=== PATIENT | female | born 1950 | race Caucasian/White ===

== ENCOUNTER 2021-02-04 17:06 | Inpatient (IN) | payer OTHER, MEDICARE, SELFPAY ==
[~2021-02-04] VITALS: Ht 170.2 cm; Wt 103.9 kg
[2021-02-04 17:08] VITALS: BP_SYST 157
--- NOTE | 2021-02-04 17:30 | NUR ---
ER DR. NELSON EXAMINING PT IN THE LOBBY
--- NOTE | 2021-02-04 18:50 | NUR ---
Placed in room 2 . Placed on bus driver/monitor, blood pressure machine and pulse oximeter. To gown for exam. Side rails up.
--- NOTE | 2021-02-04 18:57 | NUR ---
PT CAME IN C/O R LOWER LEG SWELLING 1 MONTH. PT REPORTS REPORTS HAVING DISCOMFORT WHEN AMBULATING STARTING TODAY. PT IS AAOX4, V/S STABLE
--- NOTE | 2021-02-04 19:09 | NUR ---
REPORT GIVEN TO LEONEL PEREZ FOR CONTINUING CARE
--- NOTE | 2021-02-04 19:10 | NUR ---
Report received from LEONEL Porter. will assume all care of patient. Patient AAOx4. VSS. Consent for CTA obtained. at bedside. PO fluids given. PT tolerating well.
[2021-02-04 19:18] LABS: BASOPHILS # (AUTO) 0.1 K/uL (0.0-0.2); BASOPHILS % (AUTO) 0.7 % (0.0-2.0); EOSINOPHILS # (AUTO) 0.2 K/uL (0.0-0.4); EOSINOPHILS % (AUTO) 1.7 % (0.0-4.0); HEMATOCRIT 42.5 % (36-48); HEMOGLOBIN 13.2 g/dL (12.0-16.0); LYMPHOCYTES # (AUTO) 1.7 K/uL (1.0-5.5); LYMPHOCYTES % (AUTO) 16.9 % (20.5-51.5); MEAN CORPUSCULAR HEMOGLOBIN 28 pg (27-31); MEAN CORPUSCULAR HGB CONC 31 % (32-36); MEAN CORPUSCULAR VOLUME 90 fL (79.0-98.0); MONOCYTES # (AUTO) 0.4 K/uL (0.0-1.0); MONOCYTES % (AUTO) 4.4 % (1.7-9.3); NEUTROPHILS # (AUTO) 7.8 K/uL (1.8-7.7); NEUTROPHILS % (AUTO) 76.3 % (40.0-70.0); PLATELET COUNT (AUTO) 221 K/uL (130-430); RED BLOOD CELL COUNT(AUTO) 4.72 MIL/uL (4.2-6.2); RED CELL DISTRIBUTION WIDTH 16.9 % (9.0-15.0); WHITE BLOOD COUNT (AUTO) 10.2 K/uL (4.8-10.8)
--- NOTE | 2021-02-04 19:45 | NUR ---
# 18 gauge angiocath placed to LAC. Use of asceptic technique. Opsite placed over site. Blood return noted. Flushed with 10 cc of normal saline. No evidence of infiltration noted. Patient tolerated well.
[2021-02-04 19:48] LABS: ANION GAP 8 (5-15); CALCIUM 9.4 mg/dL (8.4-11.0); CHLORIDE 108 mmol/L (98-107); CREATININE 1.29 mg/dL (0.55-1.30); GLUCOSE 168 mg/dL (70-99); POTASSIUM 3.2 mmol/L (3.5-5.1); SODIUM SERUM 144 mmol/L (136-145); UREA NITROGEN, BLOOD 33 mg/dL (8-21)
[2021-02-04 19:54] LABS: ALANINE AMINOTRANSFERASE 24 U/L (12-78); ALBUMIN 3.2 g/dL (3.4-4.8); ASPARTATE AMINOTRANSFERASE 25 U/L (10-37)
[2021-02-04] MEDS ORDERED: IOHEXOL 350 mgI/mL, 150 ML INFUS..BTL IV ONE (20:10)
--- NOTE | 2021-02-04 20:45 | NUR ---
PATIENT TAKEN TO CTA SCAN. VSS.
--- NOTE | 2021-02-04 21:18 | NUR ---
Patient will be admitted to care of [facility]. Admitted to TELE unit. Will go to room 103B. Belongings list completed. Complete and up to date summary report printed. SBAR report to be given at bedside with opportunity for questions.
[2021-02-04] MEDS ORDERED: ENOXAPARIN SODIUM 100 MG/ML SYRINGE SUBCUT ONE (21:30)
--- NOTE | 2021-02-04 21:38 | NUR ---
Patient's code status is FULL CODE paperwork completed and placed in chart.
[2021-02-04] MEDS ORDERED: ENOXAPARIN SODIUM 120 MG/0.8 ML SYRINGE SUBCUT SCH (22:00)
[2021-02-04] MEDS ORDERED: LISI2.5T48 PO (22:22)
[2021-02-04] MEDS ORDERED: ASPI-1155 PO (22:26)
[2021-02-04] MEDS ORDERED: PROP20TA7 PO (22:26)
[2021-02-04] MEDS ORDERED: HYDR25TA4 PO (22:26)
[2021-02-04] MEDS ORDERED: VITD2000 PO (22:26)
[2021-02-04] MEDS ORDERED: NEBI5TAB3 PO (22:26)
[2021-02-04] MEDS ORDERED: SITA1TAB6 PO (22:26)
[2021-02-04] MEDS ORDERED: CLON-433 PO (22:26)
--- NOTE | 2021-02-04 22:26 | NUR ---
Medication reconciliation completed with information provided by PATIENT. Any prior medication reconciliation on file was reviewed and corrected.
--- NOTE | 2021-02-04 23:01 | NUR ---
RECEIVED PT FROM ER PT AMBULATED FROM GURNEY TO BED. PT CURRENTLY DENIES PAIN. RESPIRATIONS EVEN AND UNLABORED ON RA. RIGHT LOWER LEG AND FOOT EDEMA. LEFT AC 18G IV SL. FLUSHES WELL. SKIN INTACT. BED IN LOW AND LOCKED POSITION. PT REQUESTING HALF A TURKEY SANDWICH. EDUCATED PT ON PLAN OF CARE FOR THE NIGHT. PT VERBALIZED UNDERSTANDING. CALL LIGHT WITHIN REACH. SAFETY PRECAUTIONS IN PLACE. WILL CONTINUE TO MONITOR.
--- NOTE | 2021-02-04 23:01 | NUR ---
Transfer to TELE via ACLS protocol. Licensed nurse present. IV present no signs or symptoms of infiltration.
[2021-02-04 23:28] VITALS: BP_SYST 138
--- NOTE | 2021-02-04 23:30 | NUR ---
DR. MORALES AT BEDSIDE SPEAKING TO PT ABOUT DIAGNOSIS AND PLAN OF CARE. PT VERBALIZES UNDERSTANDING.
[2021-02-05] VITALS: BP_SYST 138
[2021-02-05] MEDS: HYDROCHLOROTHIAZIDE 25 MG TABLET (HCTZ) PO SCH ×2 (00:47→08:13)
[2021-02-05] MEDS: lisinopriL 20 MG TABLET PO SCH ×2 (00:47→08:12)
--- NOTE | 2021-02-05 03:05 | NUR ---
ROUNDED PT AWAKE AND ORIENTED LAYING IN BED. RESPIRATIONS EVEN AND UNLABORED ON RA. NO SIGNS OF DISTRESS NOTED. PT STATES SHE IS UNABLE TO SLEEP BECAUSE SHE GETS UP TO AMBULATE TO RESTROOM OFTEN. PT STATES SHE WILL TRY AND REST. WILL CONTINUE TO MONITOR.
--- NOTE | 2021-02-05 06:24 | NUR ---
CLOSING NOTE PATIENT LAYING IN BED WITH RESPIRATIONS EVEN AND UNLABORED ON RA. NO SIGNS OF DISTRESS NOTED. LEFT AC 18G IV SL. FLUSHES WELL. PT CURRENTLY DENIES SOB OR PAIN. ALL NEEDS MET THROUGHOUT THE NIGHT. BED IN LOW AND LOCKED POSITION. CALL LIGHT WITHIN REACH. SAFETY PRECAUTIONS IN PLACE. WILL ENDORSE TO DAY RN.
[2021-02-05 06:51] LABS: BASOPHILS % (AUTO) 0.4 % (0.0-2.0); EOSINOPHILS # (AUTO) 0.2 K/uL (0.0-0.4); EOSINOPHILS % (AUTO) 2.1 % (0.0-4.0); HEMATOCRIT 40.2 % (36-48); HEMOGLOBIN 12.7 g/dL (12.0-16.0); LYMPHOCYTES # (AUTO) 2.1 K/uL (1.0-5.5); LYMPHOCYTES % (AUTO) 23.2 % (20.5-51.5); MEAN CORPUSCULAR HEMOGLOBIN 28 pg (27-31); MEAN CORPUSCULAR HGB CONC 32 % (32-36); MEAN CORPUSCULAR VOLUME 89 fL (79.0-98.0); MONOCYTES # (AUTO) 0.5 K/uL (0.0-1.0); MONOCYTES % (AUTO) 5.7 % (1.7-9.3); NEUTROPHILS # (AUTO) 6.2 K/uL (1.8-7.7); NEUTROPHILS % (AUTO) 68.6 % (40.0-70.0); PLATELET COUNT (AUTO) 199 K/uL (130-430); RED CELL DISTRIBUTION WIDTH 16.7 % (9.0-15.0); WHITE BLOOD COUNT (AUTO) 9.1 K/uL (4.8-10.8)
[2021-02-05 07:08] LABS: CALCIUM 9.2 mg/dL (8.4-11.0); CREATININE 1.05 mg/dL (0.55-1.30); GLUCOSE 110 mg/dL (70-99); UREA NITROGEN, BLOOD 25 mg/dL (8-21)
[2021-02-05 07:33] LABS: ANION GAP 14 (5-15); CHLORIDE 106 mmol/L (98-107); SODIUM SERUM 147 mmol/L (136-145)
[2021-02-05 07:47] LABS: POTASSIUM 2.5 mmol/L (3.5-5.1)
--- NOTE | 2021-02-05 07:49 | NUR ---
ATTENDING MD DR MORALES WAS PAGED DIRECTLY, RE: K OF 2.5.
[2021-02-05 08:00] VITALS: BP_SYST 140
[2021-02-05] MEDS: PROPRANOLOL HCL 10 MG TABLET (INDERAL) PO SCH (08:10)
[2021-02-05] MEDS: CHOLECALCIFEROL (VITAMIN D3) 2,000 UNIT TABLET PO SCH (08:11)
[2021-02-05] MEDS: metFORMIN HCL 500 MG TABLET PO SCH ×2 (08:11→18:22)
[2021-02-05] MEDS: ASPIRIN 81 MG TAB.CHEW PO SCH (08:13)
[2021-02-05] MEDS ORDERED: ENOXAPARIN SODIUM 100 MG/ML SYRINGE SUBCUT ONE (08:45)
[2021-02-05] MEDS ORDERED: METFORMIN HCL PO SCH (09:00)
[2021-02-05] MEDS ORDERED: *LOVENOX 1MG/KG Q12H/PHARMACY XX SCH (09:00)
[2021-02-05] MEDS: ENOXAPARIN SODIUM 100 MG/ML SYRINGE SUBCUT SCH ×2 (09:00→22:17)
[2021-02-05] MEDS ORDERED: [UNRECOGNIZED DRUG - OTHER] PO SCH (09:00)
[2021-02-05] MEDS ORDERED: SITAGLIPTIN PHOS PO SCH (09:00)
--- NOTE | 2021-02-05 09:10 | NUR ---
HIGH ALERT NOTE: Called Dr. espinoza back at [phone] identified within the medical roster to verify physician authenticity.
[2021-02-05] MEDS ORDERED: POTASSIUM CHLORIDE 40 MEQ, LIDOCAINE JECT 2% PF 100 MG 50 MG in NS 250 ML IV ONE (09:15)
[2021-02-05] MEDS ORDERED: POTASSIUM CHLORIDE 20 MEQ TAB.PRT.SR PO ONE (09:15)
--- NOTE | 2021-02-05 09:35 | NUR ---
Nutrition Update Yao Scale 18 noted. Pt admitted for acute pulmonary embolism. Diet: [facility] BMI: 36 kg/m2 RD to follow per nutrition care standards.
[2021-02-05] MEDS ORDERED: IOHEXOL 350 mgI/mL, 150 ML INFUS..BTL IV ONE (09:40)
--- NOTE | 2021-02-05 10:20 | NUR ---
alert, oriented, and compliant with care this am, per tech, 25% 2/ K+ 2.5, got replaced with 40meq po, and now 40K with Lidocaine, up now at 68cc/hr 3/ just finished running off CT of both LEs. walked with heaviness, secondary RLE very swollen
[2021-02-05] MEDS: INSULIN REGULAR, HUMAN 100 UNITS/ML, 10 ML VIAL (humuLIN R) SUBCUT PRN (11:12)
[2021-02-05 12:22] VITALS: BP_SYST 111
[2021-02-05] MEDS ORDERED: METOPROLOL TARTRATE 50 MG TABLET PO ONE (13:45)
[2021-02-05] MEDS ORDERED: FAMOTIDINE 20 MG TABLET PO ONE (14:45)
--- NOTE | 2021-02-05 14:51 | NUR ---
Dietitian Recommendations * CCHO, cardiac diet * RD provided diabetic and heart-healthy MNT COURTNEY, RD Please refer to Nutrition Assessment for details. Addendum: 02/05/21 at [address] Amended: Links added.
[2021-02-05] MEDS ORDERED: BENZONATATE 100 MG CAPSULE (TESSALON) PO ONE (15:00)
[2021-02-05 16:58] VITALS: BP_SYST 143
--- NOTE | 2021-02-05 18:30 | NUR ---
multiple complaints: 1/ dry cough, " because of Lopressor, or Prinivil I took" 2/ "stomach cramping all the time" attributed this to Glucophageat 3/ at home, " no insulin, why here? explained why needs Insulin, bs prior to lunch 187, 2units Humulin R given sq brought up to attending about complaints (1,2), Tessalon, and Pepcid given.
--- NOTE | 2021-02-05 19:15 | NUR ---
Opening note Received patient awake, resting in bed, talking with family member. No distress, nonlabored breathing and denies pain. IV is SL. Bed is locked in lowest position, side rails up 2x, call light w/in reach and bed alarm off. She reports she has been ambulating and does not want bed alarm. Updated board.
[2021-02-05 20:00] VITALS: BP_SYST 154
[2021-02-05] MEDS: BENZONATATE 100 MG CAPSULE (TESSALON) PO SCH (21:00)
[2021-02-05] MEDS: METOPROLOL TARTRATE 50 MG TABLET PO SCH (22:14)
--- NOTE | 2021-02-05 22:15 | NUR ---
Meds, accucheck due meds given. she did not want Tessalon stating she already received dose. She did take Metoprolol. Accucheck result was 134mg/dL.
[2021-02-06 00:05] VITALS: BP_SYST 161
[2021-02-06 00:30] VITALS: BP_SYST 157
--- NOTE | 2021-02-06 00:30 | NUR ---
rounds patient resting w/ eyes closed and momentarily awakened for repeat of B/P; 157/75, HR 64; she denies pain
[2021-02-06 06:51] LABS: BASOPHILS # (AUTO) 0.1 K/uL (0.0-0.2); BASOPHILS % (AUTO) 1.1 % (0.0-2.0); EOSINOPHILS # (AUTO) 0.2 K/uL (0.0-0.4); EOSINOPHILS % (AUTO) 2.8 % (0.0-4.0); HEMATOCRIT 36.9 % (36-48); HEMOGLOBIN 12.1 g/dL (12.0-16.0); LYMPHOCYTES # (AUTO) 2.1 K/uL (1.0-5.5); LYMPHOCYTES % (AUTO) 27.5 % (20.5-51.5); MEAN CORPUSCULAR HEMOGLOBIN 29 pg (27-31); MEAN CORPUSCULAR HGB CONC 33 % (32-36); MEAN CORPUSCULAR VOLUME 89 fL (79.0-98.0); MONOCYTES # (AUTO) 0.5 K/uL (0.0-1.0); MONOCYTES % (AUTO) 6.7 % (1.7-9.3); NEUTROPHILS # (AUTO) 4.8 K/uL (1.8-7.7); NEUTROPHILS % (AUTO) 61.9 % (40.0-70.0); PLATELET COUNT (AUTO) 173 K/uL (130-430); RED BLOOD CELL COUNT(AUTO) 4.15 MIL/uL (4.2-6.2); RED CELL DISTRIBUTION WIDTH 16.7 % (9.0-15.0); WHITE BLOOD COUNT (AUTO) 7.7 K/uL (4.8-10.8)
--- NOTE | 2021-02-06 06:55 | NUR ---
closing note Resting in bed, awake, no distress and denies pain, "looking forward to going home". Accucheck result is 98mg/dL. Needs met throughout shift, will endorse care to day shift nurse
[2021-02-06 07:01] LABS: ANION GAP 9 (5-15); CALCIUM 8.5 mg/dL (8.4-11.0); CHLORIDE 105 mmol/L (98-107); GLUCOSE 93 mg/dL (70-99); PHOSPHORUS 4.2 mg/dL (2.7-4.5); SODIUM SERUM 144 mmol/L (136-145); UREA NITROGEN, BLOOD 23 mg/dL (8-21)
[2021-02-06 08:30] VITALS: BP_SYST 171
--- NOTE | 2021-02-06 08:30 | NUR ---
ASSUMPTION OF CARE: RECEIVED PT A/A/OX4, DX:INEFFECTIVE PERIPHERAL TISSUE PERFUSION, R/T OBSTRUCTIVE PULMONARY ARTERY, VSS AFEBRILE, BREATH SOUNDS ARE CLEAR, BREATHING UNLABORED, SATURATING 96% ORA, NO S/S OF DISTRESS, NO C/O PAIN OR DISCOMFORT, IV SITE INTACT, PATENT, NO REDNESS OR SWELLING, ORIENTED TO UNIT, BRP, AMBULATORY WITH STEADY GAIT, PULSES ARE PALPABLE, COLOR IS GOOD, SKIN WARM, DRY TO TOUCH, NEEDS MET, CALL LIGHT PLACED WITHIN REACH, WILL CONT' TO MONITOR AND ASSESS.
[2021-02-06] MEDS: HYDROCHLOROTHIAZIDE 25 MG TABLET (HCTZ) PO SCH (09:00)
--- NOTE | 2021-02-06 10:15 | NUR ---
CORPORATE STRATEGY INTERN: MORNING MEDS GIVEN, PER ORDERED BY Geremias, TOLERATED WELL, WILL CONT' TO MONITOR AND ASSESS.
[2021-02-06] MEDS: BENZONATATE 100 MG CAPSULE (TESSALON) PO SCH ×3 (10:29→20:20)
[2021-02-06] MEDS: POTASSIUM CHLORIDE 20 MEQ TAB.PRT.SR PO SCH (10:29)
[2021-02-06] MEDS: metFORMIN HCL 500 MG TABLET PO SCH ×2 (10:30→18:00)
[2021-02-06] MEDS: FAMOTIDINE 20 MG TABLET PO SCH (10:30)
[2021-02-06] MEDS: PROPRANOLOL HCL 10 MG TABLET (INDERAL) PO SCH (10:30)
[2021-02-06] MEDS: CHOLECALCIFEROL (VITAMIN D3) 2,000 UNIT TABLET PO SCH (10:31)
[2021-02-06] MEDS: ASPIRIN 81 MG TAB.CHEW PO SCH (10:32)
[2021-02-06] MEDS: METOPROLOL TARTRATE 50 MG TABLET PO SCH ×2 (10:32→20:19)
[2021-02-06] MEDS: ENOXAPARIN SODIUM 100 MG/ML SYRINGE SUBCUT SCH ×2 (10:34→20:21)
[2021-02-06] MEDS: INSULIN REGULAR, HUMAN 100 UNITS/ML, 10 ML VIAL (humuLIN R) SUBCUT PRN (11:45)
--- NOTE | 2021-02-06 12:00 | NUR ---
GLUCOSE MONITORING: BLOOD SUGAR MWFTP=[id number], 2 UNITS REGULAR INSULIN GIVEN SQ, TOLERATED WELL, WILL CONT' WITH POC.
[2021-02-06 12:16] VITALS: BP_SYST 163
[2021-02-06 15:12] VITALS: BP_SYST 154
[2021-02-06] MEDS ORDERED: POTASSIUM CHLORIDE 20 MEQ TAB.PRT.SR PO ONE (18:30)
--- NOTE | 2021-02-06 19:35 | NUR ---
Opening note Received patient awake, resting in bed. No distress, nonlabored breathing and denies pain. Bed is locked in lowest position, side rails up 2x, call light w/in reach and bed alarm off. She reports she has been ambulating and does not want bed alarm. Updated board.
[2021-02-06 20:00] VITALS: BP_SYST 148
--- NOTE | 2021-02-06 20:20 | NUR ---
meds scheduled meds given
[2021-02-06] MEDS ORDERED: VALSARTAN 160 MG TABLET (DIOVAN) PO SCH (21:00)
--- NOTE | 2021-02-06 21:31 | NUR ---
accucheck Accucheck result was 146mg/dL.
--- NOTE | 2021-02-06 22:20 | NUR ---
room change Patient was changed to room 100A, belongs taken
[2021-02-07 00:50] VITALS: BP_SYST 144
--- NOTE | 2021-02-07 06:23 | NUR ---
accucheck Accucheck result was 110 mg/dL.
[2021-02-07 06:57] LABS: ANION GAP 10 (5-15); CHLORIDE 106 mmol/L (98-107); CREATININE 1.17 mg/dL (0.55-1.30); GLUCOSE 119 mg/dL (70-99); POTASSIUM 3.9 mmol/L (3.5-5.1); SODIUM SERUM 145 mmol/L (136-145); UREA NITROGEN, BLOOD 23 mg/dL (8-21)
[2021-02-07 07:42] VITALS: BP_SYST 160
[2021-02-07] MEDS: HYDROCHLOROTHIAZIDE 25 MG TABLET (HCTZ) PO SCH (07:42)
[2021-02-07] MEDS: METOPROLOL TARTRATE 50 MG TABLET PO SCH (07:42)
--- NOTE | 2021-02-07 07:50 | NUR ---
Denies any chest pain , discussed blood pressure medication , bleeding precaution verbalized understanding , able to ambulate to bathroom with steady gait.
[2021-02-07] MEDS: FAMOTIDINE 20 MG TABLET PO SCH (08:32)
[2021-02-07] MEDS: metFORMIN HCL 500 MG TABLET PO SCH (08:32)
[2021-02-07] MEDS: ASPIRIN 81 MG TAB.CHEW PO SCH (08:33)
[2021-02-07] MEDS: CHOLECALCIFEROL (VITAMIN D3) 2,000 UNIT TABLET PO SCH (08:33)
[2021-02-07] MEDS: BENZONATATE 100 MG CAPSULE (TESSALON) PO SCH (08:33)
[2021-02-07] MEDS: POTASSIUM CHLORIDE 20 MEQ TAB.PRT.SR PO SCH (08:33)
[2021-02-07] MEDS: PROPRANOLOL HCL 10 MG TABLET (INDERAL) PO SCH (08:35)
[2021-02-07] MEDS: ENOXAPARIN SODIUM 100 MG/ML SYRINGE SUBCUT SCH (08:42)
[2021-02-07] MEDS ORDERED: LOSARTAN POTASSIUM 50 MG TABLET (COZAAR) PO SCH (09:00)
--- NOTE | 2021-02-07 11:20 | NUR ---
Resting in the chair wants to go home today, educated patient on blood thinner, eliquis indication/side effect bleeding precaution verbalized understanding.
[2021-02-07 11:21] VITALS: BP_SYST 155
[2021-02-07] MEDS ORDERED: APIX5TAB4 PO (13:29)
[2021-02-07] MEDS ORDERED: VALS160T2 PO (13:32)
[2021-02-07 13:33] VITALS: BP_SYST 152
[2021-02-07] MEDS ORDERED: BENZ-16 PO (13:33)
--- NOTE | 2021-02-07 14:00 | NUR ---
D/C Patient Patient given medication reconciliation form and D/C instructions. Exit Care provided. Patient verbalized understanding. MD discussed with patient the results and treatment provided. Ambulatory with steady gait for discharge to home. Patient in stable condition, ID band removed. IV catheter removed, intact and dressing applied, no active bleeding. Rx of Shelli Wood Tessalon perle given. Patient educated on pain management, bleeding safety precaution. All belongings sent with patient.
== END 2021-02-07 14:10 | disposition home or self-care (01) | DRG 175 ==
LOC: SED 17:06 → STU 21:24
PROVIDERS: ADMIT Family Medicine; ATTEND Family Medicine
DX: I26.09 Other pulmonary embolism with acute cor pulmonale (principal); I10 Essential (primary) hypertension; M17.0 Bilateral primary osteoarthritis of knee; Z20.822 Contact with and (suspected) exposure to COVID-19; E66.9 Obesity, unspecified; E11.9 Type 2 diabetes mellitus without complications; Z88.1 Allergy status to other antibiotic agents; Z88.5 Allergy status to narcotic agent; Z88.8 Allergy status to other drugs, medicaments and biological substances; Z79.899 Other long term (current) drug therapy; Z90.49 Acquired absence of other specified parts of digestive tract; Z68.35 Body mass index [BMI] 35.0-35.9, adult
CPT/HCPCS: 36415; 71275; 75635; 76376; 80048; 80053; 82962; 83735; 83880; 84100; 84484; 85025; 85379; 93005; 93306; 93970; 96372; 99291; G0378; J1650; J1815; J3480; J7050; Q9967